=== PATIENT | female | born 1980 | race Asian ===

== ENCOUNTER → 2016-10-18 | Outpatient (CLI) | payer BC | LOC: MW.CHFP 13:27 | PROVIDERS: ATTEND Nurse Practitioner Family | DX: R76.11 Nonspecific reaction to tuberculin skin test without active tuberculosis (principal) | CPT/HCPCS: 36415; 84450; 84460 ==

== ENCOUNTER → 2016-11-15 | Outpatient (CLI) | payer BC | LOC: MW.CHFP 16:16 | PROVIDERS: ATTEND Nurse Practitioner Family | DX: R76.11 Nonspecific reaction to tuberculin skin test without active tuberculosis (principal) | CPT/HCPCS: 36415; 84450; 84460 ==